=== PATIENT | male | born 1970 | race Caucasian/White ===

== ENCOUNTER → 2019-09-10 | Outpatient (CLI) | payer OTHER ==
[~2019-09-10] MED LIST: ALBU90OI INH; BUPR150T2; CARB200; CHLO25A PO; FLUSAL1005 IH; HYDACE5 PO; INCARCERATION; LITH300C PO; LORA1 PO; OXCA150; PROP10; VENL25; VENL25 PO
== END | disposition home or self-care (01) ==
LOC: LAB 18:15 → LAB SHORT 18:15
DX: J02.0 Streptococcal pharyngitis (principal)
CPT/HCPCS: 87081

== ENCOUNTER 2020-02-11 07:23 | Emergency (ER) | payer OTHER ==
[~2020-02-11] VITALS: Ht 167.6 cm; Wt 78.0 kg
[2020-02-11] MEDS ORDERED: AMOCLA875 PO (10:48)
[2020-02-11] MEDS ORDERED: OXYC5 PO (10:48)
== END 2020-02-11 10:56 | disposition home or self-care (01) ==
LOC: ER 07:23
DX: S81.852A Open bite, left lower leg, initial encounter (principal); F31.9 Bipolar disorder, unspecified; J45.909 Unspecified asthma, uncomplicated; Z23 Encounter for immunization; Z79.899 Other long term (current) drug therapy; Z88.0 Allergy status to penicillin; W54.0XXA Bitten by dog, initial encounter
CPT/HCPCS: 12004; 73590; 90471; 90714; 99283-25

== ENCOUNTER 2023-05-14 08:45 | Day surgery (SDC) | payer OTHER ==
[~2023-05-14] VITALS: Wt 114.5 kg
[~2023-05-14 08:45] MED LIST changes: +AMOCLA875 PO; +OXYC5 PO
[2023-05-14 13:45] VITALS: BP 117/94
[2023-05-14] MEDS ORDERED: PROZAC2010 PO (14:23)
[2023-05-14] MEDS ORDERED: ZIPR80 PO (14:24)
[2023-05-14 14:39] VITALS: BP 116/85
[2023-05-14 14:50] VITALS: BP 119/81
[2023-05-14 15:07] VITALS: BP 125/95
[2023-05-14 15:22] VITALS: BP 138/101
[2023-05-14 15:38] VITALS: BP 122/87
== END 2023-05-14 16:12 | disposition home or self-care (01) ==
LOC: ATC 08:45
DX: K50.10 Crohn's disease of large intestine without complications (principal)
CPT/HCPCS: 96413; 96415; J7050; Q5103

== ENCOUNTER 2023-05-28 02:22 | Day surgery (SDC) | payer OTHER ==
[~2023-05-28] VITALS: Wt 120.6 kg
[~2023-05-28 02:22] MED LIST changes: +PROZAC2010 PO; +ZIPR80 PO
[2023-05-28 13:27] VITALS: BP 117/91
[2023-05-28 14:07] VITALS: BP 128/95
== END 2023-05-28 23:00 | disposition home or self-care (01) ==
LOC: ATC 02:22
DX: K50.10 Crohn's disease of large intestine without complications (principal)
CPT/HCPCS: 96413; 96415; J7050; Q5103

== ENCOUNTER 2023-06-25 01:46 | Day surgery (SDC) | payer OTHER ==
[2023-06-25 13:25] VITALS: BP 134/94
== END 2023-06-25 16:30 | disposition home or self-care (01) ==
LOC: ATC 01:46
DX: K50.10 Crohn's disease of large intestine without complications (principal)
CPT/HCPCS: 96413; 96415; J7050; Q5103

== ENCOUNTER 2023-08-20 04:10 | Day surgery (SDC) | payer OTHER ==
[2023-08-20 13:42] VITALS: BP 110/72
== END 2023-08-20 15:56 | disposition home or self-care (01) ==
LOC: ATC 04:10
DX: K50.10 Crohn's disease of large intestine without complications (principal)
CPT/HCPCS: 96413; 96415; J7050; Q5103

== ENCOUNTER 2023-10-15 01:47 | Day surgery (SDC) | payer OTHER ==
[~2023-10-15] VITALS: Wt 131.9 kg
[2023-10-15 14:28] VITALS: BP 135/89
[2023-10-15] MEDS ORDERED: Infliximab-DYYB 700 MG in NS 250 ML IV SCH (14:40)
== END 2023-10-15 17:10 | disposition home or self-care (01) ==
LOC: ATC 01:47
DX: K50.10 Crohn's disease of large intestine without complications (principal); Z88.8 Allergy status to other drugs, medicaments and biological substances
CPT/HCPCS: 96413; 96415; J7050; Q5103

== ENCOUNTER 2024-03-31 03:36 | Day surgery (SDC) | payer OTHER ==
[~2024-03-31] VITALS: Wt 124.7 kg
[2024-03-31 07:52] VITALS: BP 121/77
[2024-03-31] MEDS ORDERED: Infliximab-DYYB 600 MG in NS 250 ML IV SCH (08:00)
--- NOTE | 2024-03-31 12:21 | NUR ---
STOP TIME 5838
== END 2024-03-31 10:51 | disposition home or self-care (01) ==
LOC: ATC 03:36
DX: K50.10 Crohn's disease of large intestine without complications (principal); Z79.899 Other long term (current) drug therapy; Z88.6 Allergy status to analgesic agent
CPT/HCPCS: 96413; 96415; J7050; Q5103

== ENCOUNTER → 2024-04-28 | Outpatient (CLI) | payer OTHER ==
[2024-04-28 09:47] LABS: Albumin, Blood 4.3 g/dL (3.4-5.0); Bilirubin, Total 0.4 mg/dL (0.1-1.0); Bun/Creatinine Ratio 22.2 (12.0-20.0); Calcium, Blood 9.5 mg/dL (8.5-10.1); Creatinine, Blood 0.99 mg/dL (0.60-1.20); Globulin, Blood 4.2 g/dL (2.2-4.0); Potassium, Blood 3.5 mmol/L (3.5-5.5); Total Protein, Blood 8.5 g/dL (6.4-8.2)
== END | disposition home or self-care (01) ==
LOC: LAB 09:33 → LAB SHORT 09:33
PROVIDERS: Physician Assistant
DX: E11.65 Type 2 diabetes mellitus with hyperglycemia (principal)
CPT/HCPCS: 80053

== ENCOUNTER 2024-05-26 03:13 | Day surgery (SDC) | payer OTHER ==
[2024-05-26 07:36] VITALS: BP 126/82
[2024-05-26] MEDS ORDERED: Infliximab-DYYB 600 MG in NS 250 ML IV SCH (07:40)
== END 2024-05-26 10:14 | disposition home or self-care (01) ==
LOC: ATC 03:13
DX: K50.10 Crohn's disease of large intestine without complications (principal); Z79.899 Other long term (current) drug therapy; Z88.8 Allergy status to other drugs, medicaments and biological substances
CPT/HCPCS: 96413; 96415; J7050; Q5103

== ENCOUNTER 2024-09-22 07:11 | Day surgery (SDC) | payer OTHER ==
[~2024-09-22] VITALS: Wt 112.1 kg
[2024-09-22 07:40] VITALS: BP 127/91
[2024-09-22] MEDS ORDERED: Infliximab-DYYB 600 MG in NS 250 ML IV SCH (07:45)
== END 2024-09-22 11:00 | disposition home or self-care (01) ==
LOC: ATC 07:11
DX: K50.10 Crohn's disease of large intestine without complications (principal); J45.909 Unspecified asthma, uncomplicated; I50.9 Heart failure, unspecified; F25.9 Schizoaffective disorder, unspecified; Z88.8 Allergy status to other drugs, medicaments and biological substances; Z87.891 Personal history of nicotine dependence
CPT/HCPCS: 96413; 96415; J7050; Q5103

== ENCOUNTER 2024-11-17 03:26 | Day surgery (SDC) | payer OTHER ==
[~2024-11-17] VITALS: Wt 107.0 kg
[2024-11-17 08:17] VITALS: BP 108/77
[2024-11-17] MEDS ORDERED: Infliximab-DYYB 500 MG in NS 250 ML IV SCH (08:20)
== END 2024-11-17 10:53 | disposition home or self-care (01) ==
LOC: ATC 03:26
DX: K50.10 Crohn's disease of large intestine without complications (principal); J45.909 Unspecified asthma, uncomplicated; I50.9 Heart failure, unspecified; Z87.891 Personal history of nicotine dependence; Z88.6 Allergy status to analgesic agent; Z79.899 Other long term (current) drug therapy
CPT/HCPCS: 96413; 96415; J7050; Q5103

== ENCOUNTER 2024-12-31 12:37 | Inpatient (IN) | payer OTHER ==
[~2024-12-31] VITALS: Ht 162.6 cm; Wt 105.0 kg
[2024-12-31] VITALS (15 sets, daily range): BP systolic 70–112; BP diastolic 40–68
[2024-12-31 13:37] LABS: BASOPHILS ABSOLUTE AUTO 0.07 K/mm3 (0.00-0.23); BASOPHILS PERCENT AUTO 1 % (0-2); EOSINOPHILS ABSOLUTE AUTO 0.34 K/mm3 (0.00-0.68); EOSINOPHILS PERCENT AUTO 4 % (0-6); Hematocrit 32.4 % (37.0-53.0); Hemoglobin 11.2 g/dL (13.5-17.5); IMMATURE GRAN ABSOLUTE AUTO 0.02 K/mm3 (0.00-0.10); IMMATURE GRAN PERCENT AUTO 0 % (0-1); LYMPHOCYTES PERCENT AUTO 27 % (21-46); MONOCYTES ABSOLUTE AUTO 0.81 K/mm3 (0.16-1.47); MONOCYTES PERCENT AUTO 8 % (4-13); Mean Corpuscular HGB 30.9 pg (26.0-34.0); Mean Corpuscular HGB Conc 34.6 g/dL (31.5-36.5); Mean Corpuscular Volume 90 fL (80-100); Mean Platelet Volume 9.1 fL (9.1-12.4); NEUTROPHILS ABSOLUTE AUTO 5.93 K/mm3 (1.96-9.15); NEUTROPHILS PERCENT AUTO 61 % (41-73); Platelet Count 283 K/mm3 (150-400); RDW Coefficient Variation 12.3 % (11.7-14.2); RDW Standard Deviation 40.4 fL (35.1-46.3); Red Blood Cell Count 3.62 M/mm3 (4.30-5.90); White Blood Cell Count 9.77 K/mm3 (4.00-11.30)
[2024-12-31] MEDS ORDERED: Lactated Ringer's 1,000 ML IV ONE (14:30)
[2024-12-31 14:35] LABS: Albumin, Blood 3.8 g/dL (3.4-5.0); Albumin/Globulin Ratio 1.1 (0.8-1.8); Bilirubin, Total 0.3 mg/dL (0.1-1.0); Bun/Creatinine Ratio 12.7 (12.0-20.0); Calcium, Blood 8.9 mg/dL (8.5-10.1); Creatinine, Blood 8.32 mg/dL (0.60-1.20); Globulin, Blood 3.6 g/dL (2.2-4.0); Potassium, Blood 4.3 mmol/L (3.5-5.5); Total Protein, Blood 7.4 g/dL (6.4-8.2)
[2024-12-31 15:02] LABS: Source, Urine Clean Catch
[2024-12-31 15:27] LABS: Appearance, Urine Clear (Clear); Bilirubin, Urine Neg (Neg); Blood, Urine 1+ (Neg); Color, Urine Yellow (P-Yellow); Glucose Qualitative, Urine 3+ (Neg); Ketones, Urine Neg (Neg); Leukocyte Esterase, Urine Neg (Neg); Nitrite, Urine Neg (Neg); Protein, Urine Neg (Neg); Specific Gravity, Urine 1.015 (1.003-1.022); Urobilinogen, Urine NORM (Normal)
[2024-12-31 15:40] LABS: Bacteria Few /hpf; Red Blood Cells, Urine 0-2 /hpf (0-2); Squamous Epithelial Cells Rare /hpf (Few); White Blood Cells, Urine 0-2 /hpf (0-5)
[2024-12-31] MEDS ORDERED: DAPAGLIFLOZIN10 MG PO (16:08)
[2024-12-31] MEDS ORDERED: BUSPIRONE HCL30 M6 PO (16:09)
[2024-12-31] MEDS ORDERED: MELA3 PO (16:09)
[2024-12-31] MEDS ORDERED: PROZAC2010 PO (16:10)
[2024-12-31] MEDS ORDERED: TRELEGY ELLIPT1 EAC1 INH (16:11)
[2024-12-31] MEDS ORDERED: OMEP20ER PO (16:12)
[2024-12-31] MEDS ORDERED: Melatonin 3 MG Tab PO PRN (16:55)
[2024-12-31] MEDS ORDERED: Sodium Bicarb 8.4% Inj 150 MEQ in Dextrose 5% 1,000 ML IV SCH (18:00)
[2024-12-31] MEDS ORDERED: Midodrine 5 MG Tab PO SCH (18:00)
[2024-12-31] MEDS ORDERED: Mometasone/Formoterol MDI 100/5 mcg 13 GM INH SCH (18:05)
[2024-12-31] MEDS ORDERED: Albuterol HFA200 ACT/6.7 GM INH INH PRN (18:05)
[2024-12-31] MEDS ORDERED: Ipratropium Bromide INH 0.02% 0.5 mg/2.5ML Vial INH SCH ×2 (18:10→18:20)
--- NOTE | 2024-12-31 18:23 | NUR ---
Pt arrived to PCU and went into the bathroom before staff were aware of his arrival. He voided into the toilet, unmeasured. Requested pt to use the urinal so that his urine output can be measured to monitor his kidney function.
[2024-12-31] MEDS ORDERED: INFLECTRA100 MG IV (18:44)
--- NOTE | 2024-12-31 18:47 | NUR ---
UPDATED HOME MED REC: Pt states that he also gets Infliximab infusion every 3 months at [facility] outpatient [facility] for Chron's disease.
[2024-12-31 19:09] LABS: Bun/Creatinine Ratio 13.1 (12.0-20.0); Calcium, Blood 8.7 mg/dL (8.5-10.1); Creatinine, Blood 8.54 mg/dL (0.60-1.20); Potassium, Blood 4.1 mmol/L (3.5-5.5)
[2024-12-31 19:11] LABS: Albumin, Blood 3.8 g/dL (3.4-5.0); Anion Gap 15 mmol/L (3-11); Blood Urea Nitrogen 112 mg/dL (8-24); Bun/Creatinine Ratio 13.4 (12.0-20.0); CO2, Blood 17 mmol/L (21-32); Calcium, Blood 8.8 mg/dL (8.5-10.1); Chloride, Blood 107 mmol/L (98-108); Creatinine, Blood 8.38 mg/dL (0.60-1.20); Glomerular Filtration Rate 7 (60-); Glucose, Blood 117 mg/dL (70-99); Phosphorus, Blood 5.5 mg/dL (2.5-4.9); Potassium, Blood 4.1 mmol/L (3.5-5.5); Sodium, Blood 135 mmol/L (136-145)
[2024-12-31] MEDS ORDERED: BusPIRone HCl 10 MG Tab PO SCH (21:00)
[2024-12-31] MEDS ORDERED: Ziprasidone HCL 20 MG Cap PO SCH (21:00)
[2024-12-31] MEDS ORDERED: Heparin Sodium,Porcine 5,000 UNIT/0.5 ML SDV SC SCH (21:00)
[2024-12-31] MEDS ORDERED: NS 500 ML IV ONE ×2 (22:15→23:05)
--- NOTE | 2024-12-31 22:30 | NUR ---
PROVIDER CALLED DR PLASCENCIA REGARDING BP DECREASE TO 78/40. BICARB GTT STILL INFUSING @100MLS/HR PER EMAR. PROVIDER STATES TO GOVE 500ML NS BOLUS OF PT IS SYMPTOMATIC. PT C/O SOME LIGHT HEADEDNESS. 500ML BOLUS INFUSING NOW. AWAITING OUTCOME OF INTERVENTION.
[2024-12-31] MEDS ORDERED: Midodrine 5 MG Tab PO ONE (23:55)
[2024-12-31] MEDS ORDERED: NS 1,000 ML IV SCH (23:55)
[2025-01-01] VITALS (61 sets, daily range): BP systolic 75–126; BP diastolic 48–103
[2025-01-01] MEDS ORDERED: Midodrine 5 MG Tab PO STA (00:01)
[2025-01-01] MEDS ORDERED: NS 1,000 ML IV SCH (00:05)
[2025-01-01] MEDS ORDERED: Acetaminophen 325 MG TABLET PO PRN (00:05)
--- NOTE | 2025-01-01 02:05 | NUR ---
TRANSFER TO ICU POST PROVIDER NOTE. MAP'S CONTINUE TO BE BELOW <60. TEMO CALLED AGAIN, NEW ORDERS PLACED AND ADMINISTERED FOR 2ND 500ML NS BOLUS. PT CONTINUES WITH HEADACHE/LIGHT HEADEDNESS. PT VOIDING SMALL VOIDS STILL. RESIDENT/HOSPITALIST TEAM IMER/DEYSI TO BEDSIDE FOR BP 74/40. ASSESSED PT, ORDERS PLACED FOR MIDODRINE AND TO UTILIZE TEMO SUGGGESTION OF ADDING 50ML/HR NS GTT ALONGSIDE THE BICARB GTT @100ML/HR. GTT STARTED, MIDODRIN ADMINISTERED, AND TIME ALLOWED FOR DRUGS TO TAKE EFFECT. BP'S >60 MAP X 2 THEN PROCEEDED TO DROP <60 AGAIN, SOME BEING <55. AT THIS TIME, HOSPITALIST TEAM ELECTED TO TRANSFER TO ICU FOR LEVOPHED GTT. TRANSFERRED TO ICU7 @ 0203, RELINQUESHED CARE TO ALEJANDRA Verma RN AT THIS TIME.
--- NOTE | 2025-01-01 02:30 | NUR ---
ASSESSMENT/ ASSUMED CARE PT TRANSFERED FROM PCU TO ICU 7 FOR HYPOTENSION. PT ARRIVED VIA BED AT 0158. PT AWAKE, A&O X4. ANSWERING QUESTIONS APPROP. DENIES PAIN. TRANSFERED OVER TO BED BY STAFF WITH SLIDER SHEET. LUNGS CLEAR BUT DECREASED IN THE BASES ON ROOMAIR. RESP EVEN AND NONLABORED. HEART RATE IN THE 70'S. IV 20G TO LEFT FOREARM, ABLE TO DRAW BLOOD AND FLUSH WITHOUT DIFFICULTY. NA BICARB AT 100 ML/HR AND NS AT 50 ML/HR. NO EDEMA. BT+ ABD SOFT AND NONTENDER. SKIN CLEAR, WARM AND DRY. PT MOVING SELF AROUND IN BED. VOIDING CLEAR YELLOW URINE. POWER GLIDE PLACED TO LEFT UPPER ARM AND NA BICARB MOVED TO POWER GLIDE. LEVOPHED STARTED TO LEFT FOREARM PIV AT 2 MCQ WITH NS AT 50 ML/HR. PT WATCHING TV
[2025-01-01 04:22] LABS: BASOPHILS ABSOLUTE AUTO 0.04 K/mm3 (0.00-0.23); BASOPHILS PERCENT AUTO 1 % (0-2); EOSINOPHILS ABSOLUTE AUTO 0.34 K/mm3 (0.00-0.68); EOSINOPHILS PERCENT AUTO 5 % (0-6); Hematocrit 24.9 % (37.0-53.0); Hemoglobin 8.8 g/dL (13.5-17.5); IMMATURE GRAN ABSOLUTE AUTO 0.02 K/mm3 (0.00-0.10); IMMATURE GRAN PERCENT AUTO 0 % (0-1); LYMPHOCYTES ABSOLUTE AUTO 2.45 K/mm3 (0.84-5.20); LYMPHOCYTES PERCENT AUTO 36 % (21-46); MONOCYTES ABSOLUTE AUTO 0.72 K/mm3 (0.16-1.47); MONOCYTES PERCENT AUTO 11 % (4-13); Mean Corpuscular HGB 30.6 pg (26.0-34.0); Mean Corpuscular HGB Conc 35.3 g/dL (31.5-36.5); Mean Corpuscular Volume 87 fL (80-100); Mean Platelet Volume 9.1 fL (9.1-12.4); NEUTROPHILS ABSOLUTE AUTO 3.28 K/mm3 (1.96-9.15); NEUTROPHILS PERCENT AUTO 48 % (41-73); Platelet Count 264 K/mm3 (150-400); RDW Coefficient Variation 12.2 % (11.7-14.2); Red Blood Cell Count 2.88 M/mm3 (4.30-5.90); White Blood Cell Count 6.85 K/mm3 (4.00-11.30)
[2025-01-01 04:53] LABS: Albumin, Blood 3.2 g/dL (3.4-5.0); Anion Gap 16 mmol/L (3-11); Blood Urea Nitrogen 105 mg/dL (8-24); Bun/Creatinine Ratio 13.4 (12.0-20.0); CO2, Blood 16 mmol/L (21-32); Calcium, Blood 8.4 mg/dL (8.5-10.1); Chloride, Blood 107 mmol/L (98-108); Creatinine, Blood 7.82 mg/dL (0.60-1.20); Glomerular Filtration Rate 8 (60-); Glucose, Blood 134 mg/dL (70-99); Magnesium, Blood 1.8 mg/dL (1.6-2.4); Potassium, Blood 3.8 mmol/L (3.5-5.5); Sodium, Blood 135 mmol/L (136-145); Thyroid Stimulating Hormone 0.405 uIU/mL (0.360-4.800); Uric Acid, Blood 8.2 mg/dL (3.5-7.2)
[2025-01-01] MEDS ORDERED: Omeprazole 20 MG CapCR PO SCH (06:00)
--- NOTE | 2025-01-01 06:22 | NUR ---
SHFIT SUMMARY TRANSFERED FROM PCU DURING THE NIGHT DUE TO HYPOTENSION. POWER GLIDE PLACED AND PT STARTED ON LEVOPHED LOW DOSE. CURRENTLY LEVOPHED IS AT 1 MCQ[address] PT [address] QUIETLY. [address] PLASCENCIA INTO SEE PT THIS AM. CREAT IMPROVING AT 7.82. NEXT LABS AT NOON TODAY. REPORT TO ON COMING NURSE
--- NOTE | 2025-01-01 08:28 | NUR ---
ASSUMED CARE OF PATIENT AT APPROXIMATELY 0700. REPORT RECEIVED FROM MARTHA ROBERTS. PT AWAKE IN BED, INTERACTING WITH STAFF APPROPRIATELY DURING BEDSIDE REPORT. CONTINOUS CARDIAC MONITORING IN PLACE SHOWS SR, BP STABLE c MAP > 65. ON RA c O2 SATURATIONS > 92%. LEVOPHED INFUSING AT 1 MCG/MIN, BICARB INFUSING AT 100 ML/HR, NS INFUSING AT 50 mL/HR. SEE SHIFT ASSESSMENT FOR FULL DETAILS.
[2025-01-01 13:12] LABS: Albumin, Blood 3.1 g/dL (3.4-5.0); Anion Gap 13 mmol/L (3-11); Blood Urea Nitrogen 95 mg/dL (8-24); Bun/Creatinine Ratio 13.1 (12.0-20.0); CO2, Blood 21 mmol/L (21-32); Calcium, Blood 7.9 mg/dL (8.5-10.1); Chloride, Blood 107 mmol/L (98-108); Creatinine, Blood 7.27 mg/dL (0.60-1.20); Glomerular Filtration Rate 8 (60-); Glucose, Blood 126 mg/dL (70-99); Phosphorus, Blood 4.9 mg/dL (2.5-4.9); Potassium, Blood 3.9 mmol/L (3.5-5.5); Sodium, Blood 137 mmol/L (136-145)
[2025-01-01] MEDS ORDERED: Sodium Bicarb 8.4% Inj 50 MEQ in Dextrose 5% 1,000 ML IV SCH (15:00)
--- NOTE | 2025-01-01 17:06 | NUR ---
SHIFT SUMMARY PT REMAINED ALERT AND ORIENTED X 4 T/O ENTIRETY OF SHIFT. ABLE TO FOLLOW COMMANDS, MAKE PURPOSEFUL MOVEMENTS, AND MAKE NEEDS KNOWN. AFEBRILE AND DENIES PAIN. CONTINUOUS CARDIAC MONITORING IN PLACE SHOWS SR, BP STABLE c MAP > 65. LEVOPHED HAS BEEN ON SB SINCE 712 THIS SHIFT. ON RA c O2 SATURATION > 92%. TOLERATING PO INTAKE/MEDS/FLUID WELL. UTILIZES BEDSIDE URINAL c GOOD URINE OUTPUT THIS SHIFT. BICARB INFUSING AT 50 mL/HR, NS INFUSING AT 50 mL/HR. WILL CONTINUE TO MONITOR AND REPORT TO ONCOMING RN.
--- NOTE | 2025-01-01 20:27 | NUR ---
ASSUME CARE: BEDSIDE REPORT RECIEVED FROM SUSSYDCFT RN. PT A/Ox4 AND PLEASANT WITH CARE. SBP 120s, MAP>65. MONITOR SHOWS SINUS RHYTHM, RATE 80s-90s. PT DENIES CP OR PRESSURE. SPO2>95% ON RA. PT INDEPENDENT W/ REPOSITIONING, ABLE TO MAKE NEEDS KNOWN, INSTRUCTED TO USE CALL LIGHT FOR ANY ASSISTANCE. PT ABLE TO USE URINAL AT BEDSIDE. WILL UPDATE NEEDED.
[2025-01-02] VITALS (7 sets, daily range): BP systolic 119–139; BP diastolic 68–98
[2025-01-02] MEDS ORDERED: Midodrine 5 MG Tab PO SCH
--- NOTE | 2025-01-02 00:41 | NUR ---
TRANSFER TO [facility] PT TRANSFERRED TO [facility]. VSS UPON TRANSFER.
--- NOTE | 2025-01-02 03:28 | NUR ---
SHIFT SUMMARY PT TX FROM ICU. BP'S STABLE. NO OTHER ACUTE CHANGES
[2025-01-02 05:38] LABS: BASOPHILS ABSOLUTE AUTO 0.06 K/mm3 (0.00-0.23); BASOPHILS PERCENT AUTO 1 % (0-2); EOSINOPHILS ABSOLUTE AUTO 0.41 K/mm3 (0.00-0.68); EOSINOPHILS PERCENT AUTO 5 % (0-6); Hematocrit 25.1 % (37.0-53.0); Hemoglobin 8.9 g/dL (13.5-17.5); IMMATURE GRAN ABSOLUTE AUTO 0.01 K/mm3 (0.00-0.10); IMMATURE GRAN PERCENT AUTO 0 % (0-1); LYMPHOCYTES ABSOLUTE AUTO 2.94 K/mm3 (0.84-5.20); LYMPHOCYTES PERCENT AUTO 33 % (21-46); MONOCYTES ABSOLUTE AUTO 0.97 K/mm3 (0.16-1.47); MONOCYTES PERCENT AUTO 11 % (4-13); Mean Corpuscular HGB 30.9 pg (26.0-34.0); Mean Corpuscular HGB Conc 35.5 g/dL (31.5-36.5); Mean Corpuscular Volume 87 fL (80-100); Mean Platelet Volume 9.3 fL (9.1-12.4); NEUTROPHILS ABSOLUTE AUTO 4.57 K/mm3 (1.96-9.15); NEUTROPHILS PERCENT AUTO 51 % (41-73); Platelet Count 267 K/mm3 (150-400); RDW Coefficient Variation 12.5 % (11.7-14.2); RDW Standard Deviation 40.1 fL (35.1-46.3); Red Blood Cell Count 2.88 M/mm3 (4.30-5.90); White Blood Cell Count 8.96 K/mm3 (4.00-11.30)
[2025-01-02 06:07] LABS: Anion Gap 12 mmol/L (3-11); Blood Urea Nitrogen 90 mg/dL (8-24); Bun/Creatinine Ratio 13.6 (12.0-20.0); CO2, Blood 20 mmol/L (21-32); Calcium, Blood 8.3 mg/dL (8.5-10.1); Chloride, Blood 112 mmol/L (98-108); Creatinine, Blood 6.62 mg/dL (0.60-1.20); Glomerular Filtration Rate 9 (60-); Glucose, Blood 136 mg/dL (70-99); Magnesium, Blood 1.7 mg/dL (1.6-2.4); Phosphorus, Blood 6.2 mg/dL (2.5-4.9); Potassium, Blood 3.9 mmol/L (3.5-5.5); Sodium, Blood 140 mmol/L (136-145)
--- NOTE | 2025-01-02 09:54 | NUR ---
AM NOTE: PATIENT ALERT AND ORIENTED X4. DENIES NUMBNESS/TINGLING. DENIES PAIN. UP WITH SBA. MOVING ALL EXTREMITIES. TELE SHOWING SR/ST WITH HR 90-100'S. DENIES CHEST PAIN/PRESSURE/PALPITATIONS. SBP 120'S. PO MIDODRINE GIVEN THIS AM PER EMAR. PPP. SCD'S IN PLACE. IV FLUIDS INFUSING PER EMAR. ON ROOM AIR, LUNG SOUNDS CLEAR. DENIES SOB/COUGH. EVEN AND UNLABORED RESPIRATIONS AT REST. DENIES SOB WHEN UP TO SHOWER THIS AM. PATIENT STATES HE WEARS CPAP AT HOME DURING NOC. DAUGHTER JHONNY TO BRING IN PATIENT HOME CPAP. BOWEL TONES PRESENT THROUGHOUT ALL FOUR QUADRANTS. DENIES ABDOMINAL PAIN/NAUSEA. TOLERATING PO DIET. MISSING TEETH. LAST BOWEL MOVEMENT PREVIOUS SHIFT. USING URINAL IND. CALL LIGHT IN REACH. DENIES NEEDS AT THIS TIME.
--- NOTE | 2025-01-02 12:51 | NUR ---
DR. ORTIZ BY FOR MD ROUNDING, THIS RN AT BEDSIDE. PATIENT MEDICAL STATUS WITH TELE. 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
[2025-01-02 15:25] LABS: Albumin, Blood 3.1 g/dL (3.4-5.0); Anion Gap 11 mmol/L (3-11); Blood Urea Nitrogen 78 mg/dL (8-24); Bun/Creatinine Ratio 12.8 (12.0-20.0); CO2, Blood 22 mmol/L (21-32); Calcium, Blood 8.2 mg/dL (8.5-10.1); Chloride, Blood 111 mmol/L (98-108); Creatinine, Blood 6.11 mg/dL (0.60-1.20); Glomerular Filtration Rate 10 (60-); Glucose, Blood 109 mg/dL (70-99); Phosphorus, Blood 4.1 mg/dL (2.5-4.9); Sodium, Blood 140 mmol/L (136-145)
--- NOTE | 2025-01-02 15:46 | NUR ---
DR. PLASCENCIA CALLED BY THIS RN TO UPDATE ON 1500 RENAL PANEL RESULTS. ORDERS TO DISCONTINUE SODIUM BICARB DRIP AND TO INCREASE CURRENT NORMAL SALINE TO 75ML/HR UNTIL 1900 AND THEN DECREASE IT BACK TO 50 ML/HR AT 1900. ORDERS IN PLACE. CURRENT NORMAL SALINE INFUSING AT 75 ML/HR.
--- NOTE | 2025-01-02 17:43 | NUR ---
SHIFT SUMMARY: NO ACUTE CHANGES. PATIENT REMAINS ALERT AND ORIENTED. TELE SHOWING SR/ST WITH HR 80-100'S. SBP 130'S. ON ROOM AIR. DENIES PAINS. DAUGHTER TO BEDSIDE TO VISIT THIS AFTERNOON. TOLERATING PO DIET. FLUIDS INFUSING PER DR. PLASCENCIA. CALL LIGHT IN REACH. DENIES NEEDS AT THIS TIME.
[2025-01-02] MEDS ORDERED: NS 1,000 ML IV SCH (19:00)
[2025-01-03 05:08] VITALS: BP 118/80
[2025-01-03 05:21] LABS: BASOPHILS ABSOLUTE AUTO 0.06 K/mm3 (0.00-0.23); BASOPHILS PERCENT AUTO 1 % (0-2); EOSINOPHILS PERCENT AUTO 6 % (0-6); Hematocrit 25.3 % (37.0-53.0); Hemoglobin 8.8 g/dL (13.5-17.5); IMMATURE GRAN ABSOLUTE AUTO 0.02 K/mm3 (0.00-0.10); IMMATURE GRAN PERCENT AUTO 0 % (0-1); LYMPHOCYTES ABSOLUTE AUTO 2.75 K/mm3 (0.84-5.20); LYMPHOCYTES PERCENT AUTO 40 % (21-46); MONOCYTES ABSOLUTE AUTO 0.68 K/mm3 (0.16-1.47); MONOCYTES PERCENT AUTO 10 % (4-13); Mean Corpuscular HGB 31.1 pg (26.0-34.0); Mean Corpuscular HGB Conc 34.8 g/dL (31.5-36.5); Mean Corpuscular Volume 89 fL (80-100); NEUTROPHILS ABSOLUTE AUTO 3.01 K/mm3 (1.96-9.15); NEUTROPHILS PERCENT AUTO 44 % (41-73); Platelet Count 249 K/mm3 (150-400); RDW Standard Deviation 42.7 fL (35.1-46.3); Red Blood Cell Count 2.83 M/mm3 (4.30-5.90); White Blood Cell Count 6.92 K/mm3 (4.00-11.30)
[2025-01-03 05:43] LABS: Magnesium, Blood 1.4 mg/dL (1.6-2.4)
[2025-01-03 05:44] LABS: Albumin, Blood 3.2 g/dL (3.4-5.0); Anion Gap 10 mmol/L (3-11); Blood Urea Nitrogen 68 mg/dL (8-24); Bun/Creatinine Ratio 13.2 (12.0-20.0); CO2, Blood 22 mmol/L (21-32); Calcium, Blood 8.5 mg/dL (8.5-10.1); Chloride, Blood 113 mmol/L (98-108); Creatinine, Blood 5.16 mg/dL (0.60-1.20); Glomerular Filtration Rate 13 (60-); Glucose, Blood 93 mg/dL (70-99); Phosphorus, Blood 4.7 mg/dL (2.5-4.9); Potassium, Blood 4.1 mmol/L (3.5-5.5); Sodium, Blood 141 mmol/L (136-145)
--- NOTE | 2025-01-03 05:45 | NUR ---
SHIFT SUMMARY- MIDNIGHT MIDODRINE NOT GIVEN. OTHERWISE NO ACUTE EVENTS OVERNIGHT. BP STABLE
[2025-01-03] MEDS ORDERED: MAGNESIUM SULF IV ONE (07:05)
[2025-01-03] MEDS ORDERED: WATER IV ONE (07:05)
[2025-01-03 07:07] VITALS: BP 120/83
--- NOTE | 2025-01-03 07:19 | NUR ---
AM NOTE: PATIENT ALERT AND ORIENTED X4. SITTING ON EDGE OF BED GETTING BREATHING TREATMENT THIS AM. MOVING ALL EXTREMITIES. DENIES NUMBNESS/TINGLING. UP WITH SBA TO HELP MANAGE CORDS. TELE SHOWING NSR WITH HR 80-90'S. SBP 120'S. DENIES CHEST PAIN/PRESSURE/PALPITATIONS. PPP. NO EDEMA NOTED. NS INFUSING PER EMAR. ON ROOM AIR. LUNG SOUNDS CLEAR. HOME CPAP AT BEDSIDE. EVEN AND UNLABORED RESPIRATIONS. BOWEL TONES PRESENT THROUGHOUT ALL FOUR QUADRANTS. DENIES ABDOMINAL PAIN/NAUSEA. USING URINAL IND. CALL LIGHT IN REACH. DENIES NEEDS AT THIS TIME.
[2025-01-03] MEDS ORDERED: Magnesium Sulf 2 GM/Water 50ML 50 ML IV ONE (07:25)
--- NOTE | 2025-01-03 09:45 | NUR ---
DR. PLASCENCIA BY TO SEE PATIENT. PLAN FOR HIM TO FOLLOW UP WITH DR. PALSCENCIA ON 01/06 AT 1400. ORDERS TO DISCONTINUE NORMAL SALINE. ORDERS IN PLACE. SALINE LOCKED AT THIS TIME.
[2025-01-03 11:13] VITALS: BP 115/84
[2025-01-03] MEDS ORDERED: ACET325 PO (11:57)
[2025-01-03] MEDS ORDERED: LOSA25 PO (12:00)
[2025-01-03] MEDS ORDERED: FUROSEMIDE40 MG PO (12:07)
[2025-01-03] MEDS ORDERED: Prinivil10 MG PO (12:10)
--- NOTE | 2025-01-03 12:39 | NUR ---
DISCHARGE: NO ACUTE CHANGES. SEE PREVIOUS NOTES. VITAL SIGNS REMAINED STABLE. NO TELE EVENTS. DISCHARGE INSTRUCTION REVIEWED WITH PATIENT INCLUDING MEDICATIONS, FOLLOW UP APPOINTMENTS, HEART HEALTHY DIET, AND SIGNS AND SYMPTOMS OF WHEN TO RETURN. IV'S REMOVED WNL. PATIENT LEFT UNIT WITH ALL PERSONAL BELONGINGS INCLUDING WALLET, KEYS, DENTURES, CPAP AND PHONE/TELE TECH.
== END 2025-01-03 12:40 | disposition home or self-care (01) | DRG 683 ==
LOC: ER 12:37 → ICUE 15:52 → ERHOLD 15:52 → PCU 17:43 → ICUE 01-01 01:53 → PCU 01-02 00:40
PROVIDERS: Internal Medicine Nephrology; Student in an Organized Health Care Education/Training Program; ADMIT Family Medicine
PROC: 5A09357 Assistance with Respiratory Ventilation, Less than 24 Consecutive Hours, Continuous Positive Airway Pressure (ICD-10-PCS; principal; 2024-12-31)
DX: N17.9 Acute kidney failure, unspecified (principal); E87.1 Hypo-osmolality and hyponatremia; I13.0 Hypertensive heart and chronic kidney disease with heart failure and stage 1 through stage 4 chronic kidney disease, or unspecified chronic kidney disease; E87.20 Acidosis, unspecified; K50.90 Crohn's disease, unspecified, without complications; Z66 Do not resuscitate; F25.0 Schizoaffective disorder, bipolar type; I50.9 Heart failure, unspecified; J45.909 Unspecified asthma, uncomplicated; G47.30 Sleep apnea, unspecified; N18.9 Chronic kidney disease, unspecified; E83.39 Other disorders of phosphorus metabolism; D63.1 Anemia in chronic kidney disease; E79.0 Hyperuricemia without signs of inflammatory arthritis and tophaceous disease; Z88.8 Allergy status to other drugs, medicaments and biological substances; Z79.51 Long term (current) use of inhaled steroids; Z79.899 Other long term (current) drug therapy; Z79.811 Long term (current) use of aromatase inhibitors; Z87.891 Personal history of nicotine dependence; Z68.37 Body mass index [BMI] 37.0-37.9, adult; Z99.89 Dependence on other enabling machines and devices; Z91.148 Patient's other noncompliance with medication regimen for other reason
CPT/HCPCS: 36415; 51798; 71046; 76770; 80048; 80053; 80069; 81001; 82533; 82550; 82947; 83735; 83880; 84443; 84550; 85025; 93306; 94640; 94660; 94664; 94762; 99285-25; A9270; C1751; J1644; J3475; J7030; J7060; J7070; J7120

== ENCOUNTER 2025-01-19 02:58 | Day surgery (SDC) | payer OTHER ==
[~2025-01-19] VITALS: Wt 102.0 kg
[~2025-01-19 02:58] MED LIST changes: +ACET325 PO; +BUSPIRONE HCL30 M6 PO; +DAPAGLIFLOZIN10 MG PO; +FUROSEMIDE40 MG PO; +INFLECTRA100 MG IV; +LOSA25 PO; +MELA3 PO; +OMEP20ER PO; +Prinivil10 MG PO; +TRELEGY ELLIPT1 EAC1 INH
[2025-01-19 09:10] VITALS: BP 118/79
[2025-01-19] MEDS ORDERED: Infliximab-DYYB 500 MG in NS 250 ML IV SCH (09:15)
== END 2025-01-19 11:40 | disposition home or self-care (01) ==
LOC: ATC 02:58
DX: K50.10 Crohn's disease of large intestine without complications (principal); J45.909 Unspecified asthma, uncomplicated; I50.9 Heart failure, unspecified; Z87.891 Personal history of nicotine dependence; Z79.84 Long term (current) use of oral hypoglycemic drugs; Z79.899 Other long term (current) drug therapy; Z88.0 Allergy status to penicillin; Z88.8 Allergy status to other drugs, medicaments and biological substances
CPT/HCPCS: 96413; 96415; J7050; Q5103

== ENCOUNTER 2025-03-16 03:39 | Day surgery (SDC) | payer OTHER ==
[~2025-03-16] VITALS: Wt 104.7 kg
[2025-03-16 07:51] VITALS: BP 120/86
[2025-03-16] MEDS ORDERED: Infliximab-DYYB 500 MG in NS 250 ML IV SCH (07:55)
== END 2025-03-16 10:17 | disposition home or self-care (01) ==
LOC: ATC 03:39
DX: K50.10 Crohn's disease of large intestine without complications (principal); I50.9 Heart failure, unspecified; Z88.8 Allergy status to other drugs, medicaments and biological substances; Z79.899 Other long term (current) drug therapy; Z87.891 Personal history of nicotine dependence
CPT/HCPCS: 96413; 96415; J7050; Q5103

== ENCOUNTER 2025-05-11 02:03 | Day surgery (SDC) | payer OTHER ==
[~2025-05-11] VITALS: Wt 107.6 kg
[2025-05-11] MEDS ORDERED: GABA100 PO (08:02)
[2025-05-11] MEDS ORDERED: TORS10 PO (08:02)
[2025-05-11] MEDS ORDERED: Isosorbide Mono30 MG PO (08:02)
[2025-05-11 08:06] VITALS: BP 130/90
[2025-05-11] MEDS ORDERED: NS IV SCH (08:10)
[2025-05-11] MEDS ORDERED: INFLIXIMAB DYYB IV SCH (08:10)
== END 2025-05-11 10:48 | disposition home or self-care (01) ==
LOC: ATC 02:03
DX: K50.10 Crohn's disease of large intestine without complications (principal); I50.9 Heart failure, unspecified; Z79.899 Other long term (current) drug therapy; Z88.8 Allergy status to other drugs, medicaments and biological substances
CPT/HCPCS: 96413; 96415; J7050; Q5103

== ENCOUNTER 2025-07-06 01:43 | Day surgery (SDC) | payer OTHER ==
[~2025-07-06] VITALS: Wt 109.5 kg
[~2025-07-06 01:43] MED LIST changes: +GABA100 PO; +Isosorbide Mono30 MG PO; +TORS10 PO
[2025-07-06 07:46] VITALS: BP 119/86
[2025-07-06] MEDS ORDERED: Infliximab-DYYB 600 MG in NS 250 ML IV SCH (08:00)
== END 2025-07-06 10:36 | disposition home or self-care (01) ==
LOC: ATC 01:43
DX: K50.90 Crohn's disease, unspecified, without complications (principal); J45.909 Unspecified asthma, uncomplicated; I50.9 Heart failure, unspecified; Z88.8 Allergy status to other drugs, medicaments and biological substances; Z87.891 Personal history of nicotine dependence; Z79.899 Other long term (current) drug therapy
CPT/HCPCS: 96413; 96415; J7050; Q5103

== ENCOUNTER 2025-09-08 07:12 | Day surgery (SDC) | payer OTHER ==
[2025-09-08 07:20] VITALS: BP 134/84
[2025-09-08] MEDS ORDERED: Infliximab-DYYB 600 MG in NS 250 ML IV SCH (07:30)
[2025-09-08] MEDS ORDERED: POTA20LUD PO (07:56)
[2025-09-08] MEDS ORDERED: ABILIFY MYCITE20 M2 SC (07:57)
== END 2025-09-08 10:06 | disposition home or self-care (01) ==
LOC: ATC 07:12
DX: K50.10 Crohn's disease of large intestine without complications (principal); I50.9 Heart failure, unspecified; J45.909 Unspecified asthma, uncomplicated; F25.9 Schizoaffective disorder, unspecified; Z79.899 Other long term (current) drug therapy; Z88.6 Allergy status to analgesic agent; Z87.891 Personal history of nicotine dependence
CPT/HCPCS: 96413; 96415; J7050; Q5103